=== PATIENT | female | born 1960 | race Caucasian/White ===

== ENCOUNTER 2023-04-20 05:48 | Day surgery (SDC) | payer OTHER ==
[2023-04-17 08:49] VITALS: BMI 24.9
[2023-04-20 10:29] VITALS: TEMP 97.7
[2023-04-20 11:11] VITALS: BP 130/57; PULSE 61; RESP 14
== END 2023-04-20 11:11 | disposition home or self-care (01) ==
LOC: JASU-ENDO 05:48
PROVIDERS: ATTEND Internal Medicine Gastroenterology
PROC: 0DJD8ZZ Inspection of Lower Intestinal Tract, Via Natural or Artificial Opening Endoscopic (ICD-10-PCS; principal; 2023-04-20 10:00)
DX: Z12.11 Encounter for screening for malignant neoplasm of colon (principal); K57.30 Diverticulosis of large intestine without perforation or abscess without bleeding; K64.8 Other hemorrhoids; K59.89 Other specified functional intestinal disorders; Z86.010 Personal history of colon polyps